=== PATIENT | male | born 1990 | race Caucasian/White ===

== ENCOUNTER 2019-07-27 07:34 | Outpatient (CLI) | payer MEDICAID | END 2019-07-27 07:35 | disposition home or self-care (01) | LOC: DI 07:34 | PROVIDERS: ATTEND Family Medicine | DX: R00.2 Palpitations (principal); I10 Essential (primary) hypertension; Z87.891 Personal history of nicotine dependence | CPT/HCPCS: 93306 ==

== ENCOUNTER 2019-11-15 07:00 | Outpatient (CLI) | payer MEDICAID | END 2019-11-15 23:59 | disposition home or self-care (01) | LOC: LAB.R 07:00 | PROVIDERS: ATTEND Physician Assistant | DX: R00.2 Palpitations (principal) | CPT/HCPCS: 81599; 82384 ==

== ENCOUNTER 2019-12-24 16:34 | Outpatient (CLI) | payer MEDICAID ==
--- NOTE | 2019-12-24 22:08 | Ultrasound Report ---
PROCEDURE: Retroperitoneal INDICATIONS: PARAPELVIC RENAL CYST TECHNIQUE: Real-time scanning was performed of the retroperitoneal organs, with image documentation. COMPARISON: None. FINDINGS: Kidneys: Kidneys are normal in size. Right kidney measures 10.2 cm long; left kidney measures 9.8 c m long. Right renal cortical thickness is 0.9 cm; left renal cortical thickness is 0.8 cm. No solid masses, hydronephrosis, or nephrolithiasis. 0.6 x 0.4 x 0.5 cm cyst noted in the medial midpole of t he of the right kidney. 0.7 x 0.7 x 0.7 cm cyst noted in the midpole the right kidney. 2.4 x 1.9 x 2. 6 cm septated cyst noted in the midpole of the right kidney. Bladder: Prevoid urinary bladder volume 33 cc. Postvoid residual urinary bladder volume 0 cc. Both ri ght and left ureteral jets are identified. Prostate: Prostate measures 2.9 x 3.0 x 3.7 cm with total volume of 16.5 cc. Prostate calcifications noted. IMPRESSION: Right renal cysts. Largest cyst measures 2.4 x 1.9 x 2.6 cm with thin internal septation (Bosniak II) . Reviewed by: Rosa Schilling MD, PhD on 12/24/2019 10:07 PM PDT Approved by: Rosa Schilling MD, PhD on 12/24/2019 10:07 PM PDT Station ID: [id number]
== END 2019-12-24 16:35 | disposition home or self-care (01) ==
LOC: DI 16:34
PROVIDERS: ATTEND Physician Assistant
DX: N28.1 Cyst of kidney, acquired (principal)
CPT/HCPCS: 76770